=== PATIENT | male | born 1995 | race Caucasian/White ===

== ENCOUNTER 2017-01-09 21:43 | Emergency (ER) | payer BC ==
[2017-01-09] MEDS ORDERED: NS 0.9% 1000 ML* 1,000 ML IV ONE (23:24)
[2017-01-09] MEDS ORDERED: Ondansetron INJ* 2 MG/ML VIAL IV ONE (23:24)
[2017-01-10 01:16] LABS: Hematocrit 46 % (42-52); Hemoglobin 15.4 g/dl (14.0-18.0); Mean Corpuscular HGB Conc 34 g/dl (31-36); Mean Corpuscular Hemoglobin 30 pg (27-31); Mean Corpuscular Volume 88 fL (80-94); Mean Platelet Volume 8 um3 (7.4-10.4); Red Blood Count 5.21 10^6/ul (4.0-5.4); Red Cell Distribution Width 13 % (10.5-15)
[2017-01-10 01:18] LABS: Add Diff/Slide Review? Slide Review Added; Comments Flag Yes
[2017-01-10 01:27] LABS: Albumin 4.7 g/dL (3.2-5.2); BUN/Creatinine Ratio 7.3 (8-20); Calcium 9.4 mg/dL (8.6-10.3); EGFR African American 107.8 (>60); EGFR Non-African American 83.8 (>60); Globulin 3.8 g/dL (2-4); Magnesium 1.8 mg/dL (1.9-2.7); Potassium 3.8 mmol/L (3.5-5.0); Total Bilirubin 0.6 mg/dL (0.2-1.0); Total Protein 8.5 g/dL (6.4-8.9)
--- NOTE | 2017-01-10 01:29 | ED ---
Zeus Mathur Billy, scribed for Tiburcio Crump MD on 01/09/17 at 2327 . HPI Febrile Illness - HPI Summary HPI Summary: Patient is a 21 year-old male coming to [facility] for evaluation of febrile illness since yesterday. He states that his symptoms began with a subjective fever yesterday. He went to an outdoor concert nevertheless and complained of chills. Denies any diaphoresis. Today, he had a throbbing headache, diplopia, dizziness , and he syncopized while taking a bath. He also had 2x episodes of N/V at 1700 today. He has not taken anything for his fever, TMax 103F. - History of Current Complaint Chief Complaint: EDFever Time Seen by Provider: 01/09/17 23:21 Hx Obtained From: Patient Onset/Duration: Started Days Ago Timing: Constant Initial Severity: Moderate Current Severity: Moderate Aggravating Factors: Nothing Alleviating Factors: Nothing Associated Signs and Symptoms: Chills, Headache, Nausea, Vomiting, Other: - dizziness, diplopia, syncope - Allergy/Home Medications Allergies/Adverse Reactions: Allergies Allergy/AdvReac Type Severity Reaction Status Date / Time Shellfish Allergy Allergy Severe rash/hives Verified 01/09/17 21:51 PMH/Surg Hx/FS Hx/Imm Hx Endocrine/Hematology History: Denies: Hx Diabetes, Hx Thyroid Disease Cardiovascular History: Denies: Hx Hypertension Respiratory History: Denies: Hx Asthma, Hx Chronic Obstructive Pulmonary Disease (COPD) GI History: Denies: Hx Ulcer Infectious Disease History: No Infectious Disease History: Denies: Hx Hepatitis, Hx Human Immunodeficiency Virus (HIV), History Other Infectious Disease, Traveled Outside the [place] in Last 30 Days - Family History Known Family History: Positive: Hypertension, Diabetes - Social History Alcohol Use: Occasionally Substance Use Type: Reports: None Smoking Status (MU): Never Smoked Tobacco Review of Systems Positive: Fever, Chills. Negative: Skin Diaphoresis Positive: Diplopia Positive: Vomiting, Nausea Neurological: Other - dizziness Positive: Headache, Syncope All Other Systems Reviewed And Are Negative: Yes Physical Exam Triage Information Reviewed: Yes Vital Signs On Initial Exam: Initial Vitals Temp Pulse Resp BP Pulse Ox 103.2 F 125 14 148/77 100 01/09/17 21:49 01/09/17 21:49 01/09/17 21:49 01/09/17 21:49 01/09/17 21:49 Vital Signs Reviewed: Yes Appearance: Positive: Well-Appearing, No Pain Distress Skin: Positive: Warm Head/Face: Positive: Normal Head/Face Inspection Eyes: Positive: KEV ENT: Positive: Pharyngeal erythema, TMs normal Neck: Positive: Supple, Nontender, No Lymphadenopathy Respiratory/Lung Sounds: Positive: Breath Sounds Present Cardiovascular: Positive: RRR Abdomen Description: Positive: Nontender, Soft Bowel Sounds: Positive: Present Musculoskeletal: Positive: Strength/ROM Intact Neurological: Positive: Sensory/Motor Intact, Alert, Oriented to Person Place, Time, Normal Gait Psychiatric: Positive: Affect/Mood Appropriate Diagnostics - Vital Signs Vital Signs Temp Pulse Resp BP Pulse Ox 01/09/17 23:19 110 22 01/09/17 21:49 103.2 F 125 14 148/77 100 - Laboratory Lab Results: Lab Results 01/10/17 01/10/17 01/10/17 Range/Units 00:47 00:47 00:47 WBC 14.0 H (3.5-10.8) 10^3/ul RBC 5.21 (4.0-5.4) 10^6/ul Hgb 15.4 (14.0-18.0) g/dl Hct 46 (42-52) % MCV 88 (80-94) fL MCH 30 (27-31) pg MCHC 34 (31-36) g/dl RDW 13 (10.5-15) % Plt Count 293 (150-450) 10^3/ul MPV 8 (7.4-10.4) um3 Neut % (Auto) 69.6 (38-83) % Lymph % (Auto) 15.7 L (25-47) % Carroll % (Auto) 13.8 H (1-9) % Eos % (Auto) 0.5 (0-6) % Baso % (Auto) 0.4 (0-2) % Absolute Neuts (auto) 9.7 H (1.5-7.7) 10^3/ul Absolute Lymphs (auto) 2.2 (1.0-4.8) 10^3/ul Absolute Monos (auto) 1.9 H (0-0.8) 10^3/ul Absolute Eos (auto) 0.1 (0-0.6) 10^3/ul Absolute Basos (auto) 0.1 (0-0.2) 10^3/ul Absolute Nucleated RBC 0.01 10^3/ul Nucleated RBC % 0 Sodium 134 (133-145) mmol/L Potassium 3.8 (3.5-5.0) mmol/L Chloride 98 L (101-111) mmol/L Carbon Dioxide 26 (22-32) mmol/L Anion Gap 10 (2-11) mmol/L BUN 8 (6-24) mg/dL Creatinine 1.09 (0.67-1.17) mg/dL Est GFR ( Amer) 107.8 (>60) Est GFR (Non-Af Amer) 83.8 (>60) BUN/Creatinine Ratio 7.3 L (8-20) Glucose 92 (70-100) mg/dL Lactic Acid 1.2 (0.5-2.0) mmol/L Calcium 9.4 (8.6-10.3) mg/dL Magnesium 1.8 L (1.9-2.7) mg/dL Total Bilirubin 0.60 (0.2-1.0) mg/dL AST 23 (13-39) U/L ALT 31 (7-52) U/L Alkaline Phosphatase 73 (34-104) U/L Total Protein 8.5 (6.4-8.9) g/dL Albumin 4.7 (3.2-5.2) g/dL Globulin 3.8 (2-4) g/dL Albumin/Globulin Ratio 1.2 (1-3) Result Diagrams: 01/10/17 00:47 01/10/17 00:47 Lab Statement: Any lab studies that have been ordered have been reviewed, and results considered in the medical decision making process. - EKG 0044 EKG Interpretation: NSR 96 bpm, no STEMI Re-Evaluation - Re-Evaluation First Eval Change: Improved Course/Dx - Diagnoses Provider Diagnoses: Febrile illness Discharge - Discharge Plan Condition: Stable Disposition: HOME Patient Education Materials: Fever in Adults (ED) Referrals: [facility] PHYSICIAN REFERRAL [Outside] The documentation as recorded by the Zeus giron Billy accurately reflects the service I personally performed and the decisions made by me, Tiburcio Crump MD.
[2017-01-10 01:48] VITALS: BP 112/73
== END 2017-01-10 01:59 | disposition home or self-care (01) ==
LOC: ED 21:43
DX: R50.9 Fever, unspecified (principal)
CPT/HCPCS: 36415; 80053; 83605; 83735; 85025; 87502; 93005; 99282; J2405

== ENCOUNTER 2017-08-17 16:42 | Emergency (ER) | payer SELFPAY ==
[2017-08-17 17:17] VITALS: BP 123/62
--- NOTE | 2017-08-17 18:30 | UC ---
Respiratory Complaint HPI - HPI Summary HPI Summary: 3 days of cough, sore throat, diarrhea, no fevers eating and drinking well - History of Current Complaint Hx Obtained From: Patient Onset/Duration: Sudden Onset, Lasting Days - 3, Still Present Timing: Constant Severity Initially: Moderate Severity Currently: Moderate Character: Cough: Nonproductive Aggravating Factors: Nothing Alleviating Factors: Nothing Associated Signs And Symptoms: Positive: Pleuritic Chest Pain, URI, Hoarseness <Valencia Bustamante - Last Filed: 08/17/17 18:58> <Chelo Limon - Last Filed: 08/17/17 21:29> - History of Current Complaint Chief Complaint: UCRespiratory Stated Complaint: COUGH/CONGESTION Time Seen by Provider: 08/17/17 18:22 - Allergies/Home Medications Allergies/Adverse Reactions: Allergies Allergy/AdvReac Type Severity Reaction Status Date / Time Shellfish Allergy Allergy Severe rash/hives Verified 08/17/17 17:17 Home Medications: Home Medications NK [No Home Medications Reported] 08/17/17 [History Confirmed 08/17/17] PMH/Surg Hx/FS Hx/Imm Hx Previously Healthy: Yes - Surgical History Surgical History: None - Family History Known Family History: Positive: Unknown, Hypertension, Diabetes - Social History Occupation: Employed Full-time Lives: With Family Alcohol Use: Occasionally Substance Use Type: None Smoking Status (MU): Never Smoked Tobacco Have You Smoked in the Last Year: No <Valencia Bustamante - Last Filed: 08/17/17 18:58> Review of Systems Constitutional: Negative Skin: Negative Eyes: Negative ENT: Sore Throat, Nasal Discharge Respiratory: Cough Cardiovascular: Negative Gastrointestinal: Diarrhea Genitourinary: Negative Motor: Negative Neurovascular: Negative Musculoskeletal: Negative Neurological: Negative Psychological: Negative Is Patient Immunocompromised?: No All Other Systems Reviewed And Are Negative: Yes <Valencia Bustamante - Last Filed: 08/17/17 18:58> Physical Exam Triage Information Reviewed: Yes Appearance: Well-Appearing, No Pain Distress, Well-Nourished Vital Signs: Initial Vital Signs Temp 98.0 F 08/17/17 17:14 Pulse 88 08/17/17 17:14 Resp 12 08/17/17 17:14 BP 123/62 08/17/17 17:14 Pulse Ox 98 08/17/17 17:14 Vital Signs Reviewed: Yes Eye Exam: Normal Eyes: Positive: Conjunctiva Clear ENT Exam: Normal ENT: Positive: Normal ENT inspection, Hearing grossly normal, Pharyngeal erythema, TMs normal, Uvula midline. Negative: Nasal congestion, Nasal drainage , Tonsillar swelling, Tonsillar exudate, Trismus, Muffled voice, Hoarse voice, Dental tenderness, Sinus tenderness Dental Exam: Normal Neck exam: Normal Neck: Positive: Supple, Nontender, No Lymphadenopathy Respiratory Exam: Normal Respiratory: Positive: Chest non-tender, Lungs clear, Normal breath sounds, No respiratory distress, No accessory muscle use Cardiovascular Exam: Normal Cardiovascular: Positive: RRR, No Murmur, Pulses Normal, Brisk Capillary Refill Abdominal Exam: Normal Abdomen Description: Positive: Nontender, No Organomegaly, Soft. Negative: CVA Tenderness (R), CVA Tenderness (L), Distended, Guarding, Hepatomegaly, McBurney' s Point Tenderness, Peritoneal Signs Bowel Sounds: Positive: Present Musculoskeletal Exam: Normal Musculoskeletal: Positive: Strength Intact, ROM Intact, No Edema Neurological Exam: Normal Neurological: Positive: Alert, Muscle Tone Normal Psychological Exam: Normal Skin Exam: Normal <Valencia Bustamante - Last Filed: 08/17/17 18:58> Vital Signs: Initial Vital Signs Temp 98.0 F 08/17/17 17:14 Pulse 88 08/17/17 17:14 Resp 12 08/17/17 17:14 BP 123/62 08/17/17 17:14 Pulse Ox 98 08/17/17 17:14 <Chelo Limon - Last Filed: 08/17/17 21:29> UC Diagnostic Evaluation - Laboratory O2 Sat by Pulse Oximetry: 98 Diagnostic Studies Comment: RST (-) <Valencia Bustamante - Last Filed: 08/17/17 18:58> Respiratory Course/Dx - Course Course Of Treatment: Increase fluids, rest, follow with pcp prn - Differential Dx/Diagnosis Provider Diagnoses: Viral illness <Valencia Bustamante - Last Filed: 08/17/17 18:58> Discharge <Valencia Bustamante - Last Filed: 08/17/17 18:58> <Chelo Limon - Last Filed: 08/17/17 21:29> - Discharge Plan Condition: Stable Disposition: HOME Patient Education Materials: Acute Diarrhea (ED), Viral Syndrome (ED), Nutrition Tips for Relief of Diarrhea (ED) Forms: *Work Release Referrals: [facility] PHYSICIAN REFERRAL [Outside] - 1 Week Attestation Statement User Type: Provider - I was available for consult. This patient was seen by the SHAJI. The patient was not presented to, seen by, or examined by me. -Wilian <Chelo Limon - Last Filed: 08/17/17 21:29>
== END 2017-08-17 19:15 | disposition home or self-care (01) ==
LOC: UCEAST 16:42
DX: B34.9 Viral infection, unspecified (principal)
CPT/HCPCS: 87651; 99211; G0463

== ENCOUNTER 2018-04-15 10:44 | Emergency (ER) | payer BC ==
[2018-04-15 10:53] VITALS: BP 111/79
--- NOTE | 2018-04-15 11:08 | UC ---
Throat Pain/Nasal Benigno HPI - HPI Summary HPI Summary: The patient is a 23-year-old male with sore throat and swollen glands. His significant other is currently being treated for strep. They have a at home. He has a mild headache and myalgias. He denies any fever or chills. - History of Current Complaint Chief Complaint: UCRespiratory Stated Complaint: SORE THROAT Time Seen by Provider: 04/15/18 10:47 Hx Obtained From: Patient Severity: Moderate Pain Intensity: 6 - declines analgesic Pain Scale Used: 0-10 Numeric - Epiglottits Risk Factors Epiglottis Risk Factors: Negative - Allergies/Home Medications Allergies/Adverse Reactions: Allergies Allergy/AdvReac Type Severity Reaction Status Date / Time shellfish derived Allergy Rash Verified 04/15/18 10:54 PMH/Surg Hx/FS Hx/Imm Hx Previously Healthy: Yes - Surgical History Surgical History: None - Family History Known Family History: Positive: Hypertension, Diabetes - Social History Alcohol Use: Rare Substance Use Type: None Smoking Status (MU): Never Smoked Tobacco Have You Smoked in the Last Year: No Review of Systems Constitutional: Negative Skin: Negative Eyes: Negative ENT: Sore Throat Respiratory: Negative Cardiovascular: Negative Gastrointestinal: Negative Genitourinary: Negative Motor: Negative Neurovascular: Negative Musculoskeletal: Negative Neurological: Negative Psychological: Negative Is Patient Immunocompromised?: No All Other Systems Reviewed And Are Negative: Yes Physical Exam Triage Information Reviewed: Yes Appearance: Well-Appearing, No Pain Distress, Well-Nourished Vital Signs: Initial Vital Signs Temp 97.8 F 04/15/18 10:49 Pulse 67 04/15/18 10:49 Resp 16 04/15/18 10:49 BP 111/79 04/15/18 10:49 Pulse Ox 96 04/15/18 10:49 Vital Signs Reviewed: Yes Eyes: Positive: Conjunctiva Clear ENT: Positive: Pharyngeal erythema, Tonsillar swelling, Tonsillar exudate Neck: Positive: Supple, Enlarged Nodes @ - ant cerv Respiratory: Positive: Lungs clear, Normal breath sounds, No respiratory distress Cardiovascular: Positive: RRR, No Murmur Musculoskeletal: Positive: ROM Intact, No Edema Neurological: Positive: Alert Psychological Exam: Normal Skin Exam: Normal Diagnostics - Laboratory Diagnostic Studies Completed/Ordered: strep - Throat Pain/Nasal Course/Dx - Differential Dx/Diagnosis Provider Diagnoses: acute pharyngitis Discharge - Sign-Out/Discharge Documenting (check all that apply): Patient Departure - Discharge Plan Condition: Stable Disposition: HOME Prescriptions: Amoxicillin PO (*) [Amoxicillin 875 MG (*)] 875 mg PO BID #20 tab Patient Education Materials: Pharyngitis (ED) Forms: *Work Release Referrals: No Primary Care Phys,NOPCP [Primary Care Provider] - Additional Instructions: rest fluids recent in 4 days if not better - Billing Disposition and Condition Condition: STABLE Disposition: Home
== END 2018-04-15 11:12 | disposition home or self-care (01) ==
LOC: UCEAST 10:44
DX: J02.9 Acute pharyngitis, unspecified (principal); Z91.013 Allergy to seafood
CPT/HCPCS: 87651; 99212; G0463

== ENCOUNTER 2018-04-20 13:12 | Emergency (ER) | payer BC ==
[2018-04-20 13:21] VITALS: BP 119/78
--- NOTE | 2018-04-20 13:28 | UC ---
Respiratory Complaint HPI - HPI Summary HPI Summary: A 23 y/o M presents to [facility] with sore throat onset five days ago. He was seen at [facility] and his strep test was negative, but he was given ABX (Amoxicillin) because he has a at home. Yesterday, his sx worsened and he is now experiencing a severe cough, chest pressure, chills. Denies fever. He has been taking DayQuil to mild relief. Six days ago, his girlfriend was diagnosed with strep. PMHx: bronchitis. - History of Current Complaint Chief Complaint: UCRespiratory Stated Complaint: COUGH Time Seen by Provider: 04/20/18 13:22 Hx Obtained From: Patient Onset/Duration: Lasting Days, Still Present Timing: Constant Severity Initially: Mild Severity Currently: Moderate Pain Intensity: 5 Pain Scale Used: 0-10 Numeric Alleviating Factors: OTC Meds - mildly Associated Signs And Symptoms: Positive: Chills. Negative: Fever - Allergies/Home Medications Allergies/Adverse Reactions: Allergies Allergy/AdvReac Type Severity Reaction Status Date / Time shellfish derived Allergy Rash Verified 04/20/18 13:21 Home Medications: Home Medications D-Methorphan/PE/Acetaminophen [Gnp Day Time Cold/Flu Rel] 1 liq PO DAILY PRN [History Confirmed 04/20/18] PMH/Surg Hx/FS Hx/Imm Hx Previously Healthy: Yes Other Cardiovascular History: neg: HTN Respiratory History: Bronchitis Other Respiratory History: neg: asthma - Surgical History Surgical History: None - Family History Known Family History: Positive: Hypertension, Diabetes - Social History Occupation: Employed Full-time Lives: With Family Alcohol Use: Rare Substance Use Type: None Smoking Status (MU): Never Smoked Tobacco Have You Smoked in the Last Year: No Review of Systems Constitutional: Negative - fever, Chills ENT: Sore Throat Respiratory: Cough - severe Cardiovascular: Other - pos: chest pressure All Other Systems Reviewed And Are Negative: Yes Physical Exam - Summary Physical Exam Summary: VITAL SIGNS: Reviewed. GENERAL: Patient is a well-developed and nourished MALE who is lying comfortable in the stretcher. Patient is not in any acute respiratory distress. HEAD AND FACE: Normocephalic EYES: PERRLA, EOMI x 2. EARS: Hearing grossly intact. MOUTH: Oropharynx within normal limits. NECK: Supple, trachea is midline, no adenopathy, no JVD, no carotid bruit. CHEST: Symmetric, no tenderness at palpation LUNGS: Clear to auscultation bilaterally. No wheezing or crackles. CVS: Regular rate and rhythm, S1 and S2 present, no murmurs or gallops appreciated. ABDOMEN: Soft, non-tender. Bowel sounds are normal. No abdominal abnormal pulsations. EXTREMITIES: Full ROM in all major joints, no edema, no cyanosis or clubbing. NEURO: Alert and oriented x 3. No acute neurological deficits. Speech is normal and follows commands. SKIN: Dry and warm Triage Information Reviewed: Yes Vital Signs: Initial Vital Signs Temp 98.2 F 04/20/18 13:16 Pulse 84 04/20/18 13:16 Resp 16 04/20/18 13:16 BP 119/78 04/20/18 13:16 Pulse Ox 97 04/20/18 13:16 Vital Signs Reviewed: Yes Diagnostic Evaluation - Laboratory O2 Sat by Pulse Oximetry: 97 Respiratory Course/Dx - Course Course Of Treatment: This patient is a 23-year-old male who presents to the urgent care with a chief complaint of having dry cough. Patient reports that he was here on Wednesday and he was diagnosed with pharyngitis for which the patient is taking Augmentin. Now he has developed a dry cough which I think is a viral etiology. In the physical exam there is no crackles does not wheezing so I believe that the patient would not benefit of a chest x-ray. He reports that when he takes DayQuil his symptoms are suppressed. Therefore he will was recommended to continue taking this medication. Therefore the patient will be discharged home with follow-up with PCP. He was recommended to take Tylenol or ibuprofen for fevers or pain. Understands and agrees. - Differential Dx/Diagnosis Provider Diagnoses: Cough likely viral Discharge - Sign-Out/Discharge Documenting (check all that apply): Patient Departure - DC All imaging exams completed and their final reports reviewed: No Studies - Discharge Plan Condition: Stable Disposition: HOME Patient Education Materials: Chronic Cough (ED) Referrals: [facility]IAN REFERRAL [Outside] No Primary Care Phys,NOPCP [Primary Care Provider] - Additional Instructions: Take Acetaminophen or ibuprofen for pain or fever Increase your fluid intake Return to the or go to the emergency department if symptoms worsen Follow-up with primary care physician in next 2-3 days - Billing Disposition and Condition Condition: STABLE Disposition: Home - Attestation Statements Document Initiated by Veronikaibmai: Yes Documenting Scribe: Syl Soliman Provider For Whom Lakeisha is Documenting (Include Credential): Javier Kang MD Scribe Attestation: ISyl, scribed for Javier Kang MD on 04/20/18 at 1420. Scribe Documentation Reviewed: Yes Provider Attestation: The documentation as recorded by the Syl giron accurately reflects the service I personally performed and the decisions made by me, Javier Kang MD
== END 2018-04-20 13:34 | disposition home or self-care (01) ==
LOC: UCEAST 13:12
DX: R05 Cough (principal); J02.9 Acute pharyngitis, unspecified; R07.89 Other chest pain; R68.83 Chills (without fever); Z91.013 Allergy to seafood
CPT/HCPCS: 99211; G0463

== ENCOUNTER 2018-10-28 19:01 | Emergency (ER) | payer BC ==
[2018-10-28 20:05] VITALS: BP 104/66
[2018-10-28 20:16] LABS: Influenza A Molecular POSITIVE (Negative)
[2018-10-28] MEDS ORDERED: Ibuprofen TAB* 600 MG PO ONE (21:10)
--- NOTE | 2018-10-28 21:24 | UC ---
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 she states that their office treats w/ tamiflu to pts up to 72 hrs of sx. + diarrhea. no abd pain. feels like "". has been sleeping for 2 days. tmax only 99. decreased appetite. + cough. + exercise induced asthma hx. -diego and their 8 mo old baby do not have sx. - History of Current Complaint Chief Complaint: UCRespiratory Stated Complaint: DIARRHEA, VOMITING, DIZZINESS Time Seen by Provider: 10/28/18 21:24 Pain Intensity: 6 - Allergies/Home Medications Allergies/Adverse Reactions: Allergies Allergy/AdvReac Type Severity Reaction Status Date / Time shellfish derived Allergy Rash Verified 10/28/18 19:57 Home Medications: Home Medications Acetaminophen [Acetaminophen Extra Strength] 1,000 mg PO Q6H PRN 10/28/18 [ History Confirmed 10/28/18] PMH/Surg Hx/FS Hx/Imm Hx Previously Healthy: Yes - Surgical History Surgical History: None - Family History Known Family History: Positive: Hypertension, Diabetes - Social History Alcohol Use: Rare Substance Use Type: None Smoking Status (MU): Never Smoked Tobacco Have You Smoked in the Last Year: No Review of Systems All Other Systems Reviewed And Are Negative: Yes Constitutional: Positive: Fever, Chills, Fatigue Skin: Positive: Negative Eyes: Positive: Negative ENT: Positive: Sore Throat, Ear Ache, Nasal Discharge Respiratory: Positive: Cough. Negative: Shortness Of Breath Cardiovascular: Positive: Negative. Negative: Palpitations, Chest Pain Gastrointestinal: Positive: Diarrhea, Nausea. Negative: Abdominal Pain Genitourinary: Positive: Negative Motor: Positive: Negative Neurovascular: Positive: Negative Musculoskeletal: Positive: Arthralgia, Myalgia Neurological: Positive: Negative Psychological: Positive: Negative Is Patient Immunocompromised?: No Physical Exam Triage Information Reviewed: Yes Appearance: Well-Nourished, Ill-Appearing Vital Signs: Initial Vital Signs Temp 99.7 F 10/28/18 20:00 Pulse 88 10/28/18 20:00 Resp 20 10/28/18 20:00 BP 104/66 10/28/18 20:00 Pulse Ox 98 10/28/18 20:00 Vital Signs Reviewed: Yes Eye Exam: Normal ENT: Positive: Hearing grossly normal - muffled, Pharyngeal erythema - no exudate., Nasal drainage, TMs normal, Uvula midline. Negative: TM bulging, TM dull, Tonsillar exudate, Sinus tenderness Dental Exam: Normal Neck exam: Normal Neck: Positive: Supple, Nontender, No Lymphadenopathy Respiratory Exam: Normal Respiratory: Positive: Chest non-tender, Lungs clear, Normal breath sounds, No respiratory distress, No accessory muscle use. Negative: Crackles, Rhonchi, Stridor, Wheezing Cardiovascular Exam: Normal Cardiovascular: Positive: RRR, No Murmur Abdominal Exam: Normal Abdomen Description: Positive: Nontender, Soft Musculoskeletal Exam: Normal Neurological Exam: Normal Psychological Exam: Normal Skin Exam: Normal Respiratory Course/Dx - Course Course Of Treatment: Sx x 48 hrs. discussed cdc guidelines for tamiflu treatment and he does not meet these guidelines. exercise induced asthma only. they have an 8 month old baby at home. His diego asks for tamiflu for their baby. I recommend that they contact the baby's dealer analyst tonight/tomorrow morning. Diego states she works at that office and is working tomorrow. she will discuss it w/ the dealer analyst in the AM. - Differential Dx/Diagnosis Differential Diagnosis/HQI/PQRI: Bronchitis, Influenza, Laryngitis Provider Diagnosis: Influenza A Discharge - Sign-Out/Discharge Documenting (check all that apply): Patient Departure All imaging exams completed and their final reports reviewed: No Studies - Discharge Plan Condition: Stable Disposition: HOME Patient Education Materials: Influenza (DC) Forms: *Work Release Referrals: No Primary Care Phys,NOPCP [Primary Care Provider] - [facility] [Provider Group] - 1 Week Additional Instructions: Make sure to get plenty of rest and fluids. Ibuprofen and/or tyelnol will help your pain and fevers. - Billing Disposition and Condition Condition: STABLE Disposition: Home
== END 2018-10-28 21:54 | disposition home or self-care (01) ==
LOC: UCCORT 19:01
DX: J10.1 Influenza due to other identified influenza virus with other respiratory manifestations (principal); R11.10 Vomiting, unspecified; R42 Dizziness and giddiness; R19.7 Diarrhea, unspecified; Z91.013 Allergy to seafood
CPT/HCPCS: 99212; A9270-GY; G0463

== ENCOUNTER → 2019-01-02 17:35 | Emergency (ER) | payer BC ==
[~2019-01-02 17:35] MED LIST: Ondansetron ODT TAB* 4 MG ONE; Ondansetron ODT TAB* 4 MG SL PRN
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
[2019-01-02 21:01] VITALS: BP 111/73
== END | disposition home or self-care (01) ==
LOC: ED 17:35
DX: S00.93XA Contusion of unspecified part of head, initial encounter (principal); V89.2XXA Person injured in unspecified motor-vehicle accident, traffic, initial encounter; Y92.410 Unspecified street and highway as the place of occurrence of the external cause
CPT/HCPCS: 70450; 99282; A9270-GY

== ENCOUNTER 2021-02-19 10:17 | Inpatient (IN) ==
[2021-02-19 11:11] LABS: Urine Appearance Clear; Urine Bilirubin Negative (Negative); Urine Blood Negative (Negative); Urine Color Yellow; Urine Glucose Negative (Negative); Urine Ketones Trace (Negative); Urine Nitrite Negative (Negative); Urine Protein Negative (Negative); Urine Specific Gravity 1.028 (1.002-1.030); Urine Urobilinogen Negative (Negative)
[2021-02-19 11:39] LABS: ABS Eosinophils 0.1 10^3/ul (0-0.6); ABS Lymphocytes 1.7 10^3/ul (1.0-4.8); ABS Monocytes 0.7 10^3/ul (0-0.8); ABS Neutrophils 6.9 10^3/ul (1.5-7.7); Eosinophil % 0.7 %; Hematocrit 47 % (42-52); Hemoglobin 15.5 g/dL (14.0-18.0); Lymphocyte % 18.3 %; Mean Corpuscular HGB Conc 33 g/dL (31-36); Mean Corpuscular Hemoglobin 30 pg (27-31); Mean Corpuscular Volume 91 fL (80-94); Mean Platelet Volume 7.2 fL (7.4-10.4); Platelet Count 322 10^3/uL (150-450); Red Blood Count 5.15 10^6 /uL (4.18-5.48); Red Cell Distribution Width 13 % (10-15); White Blood Count 9.4 10^3/uL (3.5-10.8)
[2021-02-19 11:41] LABS: Urine Benzodiazepine Screen None Detected (None Detect); Urine Cannabinoids Screen None Detected (None Detect); Urine Opiates Screen None Detected (None Detect)
[2021-02-19 11:55] LABS: ALT 42 U/L (7-52); AST 29 U/L (13-39); Albumin 4.7 g/dL (3.2-5.2); Albumin/Globulin Ratio 1.4 (1-3); Alkaline Phosphatase 70 U/L (35-149); Anion Gap 4 mmol/L (2-11); Blood Urea Nitrogen 14 mg/dL (6-24); CO2 Carbon Dioxide 27 mmol/L (22-32); Calcium 9.6 mg/dL (8.6-10.3); Chloride 104 mmol/L (101-111); EGFR African American 115.6 (>60); EGFR Non-African American 95.6 (>60); Globulin 3.4 g/dL (2-4); Glucose 94 mg/dL (70-100); Potassium 3.8 mmol/L (3.5-5.0); Sodium 135 mmol/L (135-145); Total Protein 8.1 g/dL (6.4-8.9)
[2021-02-19 12:41] LABS: Acetaminophen < 15 mcg/mL; Alcohol, S < 10 mg/dL (<10); Salicylate < 2.50 mg/dL (<30)
[2021-02-19 12:52] LABS: TSH Ultra Thyroid Stim Horm 1.26 mcIU/mL (0.34-5.60)
[2021-02-19] MEDS ORDERED: Al Hydrox/Mg Hydrox/Simet LIQ 30 ML UDC PO PRN (14:28)
[2021-02-19] MEDS: diPHENhydraMINE 25 mg TAB PO SCH (20:08)
[2021-02-20 08:13] LABS: HDL Cholesterol 42.2 mg/dL
[2021-02-20] MEDS: diPHENhydraMINE 25 mg TAB PO SCH (21:36)
[2021-02-21] MEDS: diPHENhydraMINE 25 mg TAB PO SCH (23:00)
[2021-02-22] MEDS: diPHENhydraMINE 25 mg TAB PO SCH (21:34)
[2021-02-23] MEDS: diPHENhydraMINE 25 mg TAB PO SCH (21:51)
[2021-02-24 09:06] VITALS: BP 122/84
== END 2021-02-24 11:00 | disposition home or self-care (01) | DRG 755 ==
LOC: ED 10:17 → BSU 14:28
PROVIDERS: ADMIT Psychiatry & Neurology Psychiatry; ATTEND Psychiatry & Neurology Psychiatry